=== PATIENT | female | born 1990 | race Caucasian/White ===

== ENCOUNTER 2017-03-16 10:07 | Emergency (ER) | payer SELFPAY ==
[~2017-03-16] VITALS: Ht 157.5 cm; Wt 71.0 kg
[2017-03-16] MEDS ORDERED: HYDROCODONE/ACETAMINOPHEN 5/325MG TABLET PO ONE (12:45)
[2017-03-16 13:05] VITALS: BP 138/85
== END 2017-03-16 13:13 | disposition home or self-care (01) ==
LOC: ER 10:31
DX: L05.91 Pilonidal cyst without abscess (principal)
CPT/HCPCS: 99283